=== PATIENT | male | born 1975 | race Caucasian/White ===

== ENCOUNTER 2018-05-04 11:41 | Inpatient (IN) ==
[2018-05-04] MEDS ORDERED: Sodium Chloride 0.9% 2 ML Flush PRN IV.FLUSH (12:27)
[2018-05-04] MEDS ORDERED: ceFAZolin 2 GM IV; once IV.SIG ONE (12:30)
[2018-05-04] MEDS ORDERED: Chlorhexidine Gluconate 2% 1 Pack (2 Cloths) TOPICAL ONE (12:30)
[2018-05-04] MEDS ORDERED: Metoprolol Tartrate 25 MG Tablet PO ONE (12:30)
[2018-05-04] MEDS ORDERED: Sodium Chlor 0.9% Inj 500 ML IV.CONT ONE (12:30)
[2018-05-04] MEDS ORDERED: Sugammadex Inj 200 MG/2 ML Vial IV.PUSH ONE (13:20)
[2018-05-04] MEDS ORDERED: Famotidine PF Inj 20 MG/2 ML Vial ONE (13:21)
[2018-05-04 13:22] LABS: Prothrombin Time 10.5 sec (9.8-11.6)
[2018-05-04] MEDS ORDERED: Lidocaine PF 1% Inj 5 ML Syringe OTHER ONE (13:44)
[2018-05-04] MEDS ORDERED: Normosol-R pH 7.4 Inj 4,000 ML IV.CONT ONE (13:44)
[2018-05-04] MEDS ORDERED: Phenylephrine/NS 1000 MCG/10ML Syringe IV.PUSH ONE (13:44)
[2018-05-04] MEDS ORDERED: Sodium Chlor 0.9% Inj 1,000 ML IV.SIG SCH (18:00)
[2018-05-04] MEDS ORDERED: *Meperidine Inj 25 MG/ML Vial PERIprocedural Use ONLY ONE (18:35)
[2018-05-04] MEDS ORDERED: fentaNYL Citrate Inj 100 MCG/2 ML Ampul ONE (18:40)
[2018-05-04 19:17] LABS: Baso % (Auto) 0.1 % (0.0-2.0); Eos % (Auto) 0.1 % (0.0-4.0); Hematocrit 32.9 % (39.0-51.0); Hemoglobin 11.8 gm/dL (13.0-17.0); Lymph # (Auto) 0.6 th/mm3 (1.0-4.8); Lymph % (Auto) 3.6 % (9.0-44.0); Mean Corpuscular Hemoglobin 32.8 pg (27.0-34.0); Mean Corpuscular Volume 91.2 fL (80.0-100.0); Mean Platelet Volume 8.9 fL (7.0-11.0); Mono # (Auto) 0.3 th/mm3 (0.0-0.9); Neut # (Auto) 14.4 th/mm3 (1.8-7.7); Neut % (Auto) 94.2 % (16.0-70.0); Platelet Count 141 th/mm3 (150-450); Red Blood Count 3.61 mil/mm3 (4.50-5.90); Red Cell Distribution Width 12.9 % (11.6-17.2); White Blood Count 15.3 th/mm3 (4.0-11.0)
[2018-05-04 19:41] LABS: Calcium 6.5 mg/dL (8.5-10.1); Carbon Dioxide 24.4 meq/L (21.0-32.0)
[2018-05-04 19:52] LABS: Potassium 4.1 meq/L (3.5-5.1)
[2018-05-04] MEDS: Pantoprazole Inj 40 MG Vial IV.PUSH SCH ×2 (19:55→22:54)
--- NOTE | 2018-05-04 20:36 | MP ---
cc: Isauro Dawson MD DATE OF OPERATION: 05/04/2018 PREOPERATIVE DIAGNOSIS: A 5 cm right solid renal mass. POSTOPERATIVE DIAGNOSIS: A 5 cm right solid renal mass. PROCEDURE PERFORMED: Robotic-assisted laparoscopic right radical nephrectomy. SURGEON: Isauro Dawson MD ANESTHESIA: General. COMPLICATIONS: None. PREOPERATIVE ANTIBIOTICS: Ancef 2 grams IV. DRAINS: Handley catheter. ESTIMATED BLOOD LOSS: 700 mL. FLUIDS: 5 liters of crystalloids. SPECIMENS: Right kidney for permanent. DISPOSITION: Stable to recovery. INDICATIONS: The patient is a 42-year-old male who was found to have an incidental large right renal mass. Treatment options were discussed and he elected to proceed with a right robotic partial nephrectomy, possible radical nephrectomy. After the risks, benefits and alternatives were explained to the patient, including the risk of renal failure and dialysis, among others, he elected to proceed. Informed consent was obtained. DETAILS OF PROCEDURE: The patient was properly identified and brought back to the operating room. He was laid supine on the operating table. A proper timeout was performed. Under the direction of anesthesiology, the patient was intubated and induced under general anesthetic. Preoperative antibiotics in the form of Ancef 2 grams IV were given within 1 hour of the start of the procedure. The patient was then placed in the left lateral decubitus position with the right side up after Handley catheter was placed and all pressure points were padded. He was then prepped and draped in the normal sterile surgical fashion. A stab incision was made superior to the umbilicus and I entered the abdominal cavity with a Veress needle. I then gained pneumoperitoneum at this time and placed a 12 mm camera port under direct visualization into the abdominal cavity. The abdominal cavity was carefully inspected with no evidence of any abdominal injuries including bleeding. Of note, the patient was found to have a small umbilical hernia containing fat. At this time, the 4 remaining ports were then placed under direct visualization including two 8 mm robotic seed analysis laboratory assistant ports triangulated off the camera port, a 5 mm port in the midline just below the xiphoid process for liver retraction and then a 12 mm seed analysis laboratory assistant port inferior to the umbilicus. Again, all ports were placed under direct visualization. The robot was then brought into position. I began by reflecting the white line of Toldt and reflecting the colon medially. This exposed the retroperitoneum. Next, I was able to kocherize the duodenum, which then gained access to the inferior vena cava. I then developed a plane between the inferior vena cava and the right kidney, where I found the psoas muscle. I then retracted the kidney anteriorly and went up the inferior vena cava towards the renal hilum. As I watched up to the renal hilum, I came across a large renal vein and there was a small branch anterior to this renal vein. I carefully dissected it out circumferentially and attempted to ligate it with the vessel sealer. However, the vessel sealer misfired and the apparent branch tore off of the IVC and there was some significant bleeding coming from the IVC. This was controlled with an interrupted 4-0 Prolene stitch. Once the bleeding was controlled, I began to carefully dissect around the renal hilum. At this point, I adjusted my retraction with the left arm to retract the kidney more anterior to the abdominal wall and encountered a vessel on the back side of the kidney that again resulted in significant bleeding. I was able to carefully dissect this vessel on the back side of the kidney out and and gain control with a new vessel sealer. After ligating this vessel, bleeding was well controlled. At this point, I then turned my attention back to the renal hilum. At this time, I found 2 renal arteries and a large renal vein. Both renal arteries were posterior to the renal vein. These were dissected out circumferentially. At this point, I then carefully decided to go locate the mass on the right kidney. I removed some of the perinephric fat on the kidney and came across this large mass that appeared to be quite stuck on the liver itself. The mass appeared to be more extensive than previously seen on the CAT scan. I did not feel I could get a negative margin, especially with it being stuck to the liver. Therefore, at this point, I decided that his best option would be to remove his entire kidney. At this point, I turned my attention to taking the renal hilum. Due to positioning of the upper pole artery, I was not able to take each artery separately. Therefore, I took the lower pole artery and vein together. There was some backbleeding, but this was controlled quite quickly as the second renal artery was then ligated with the vascular stapler. At this point, the superior and lateral attachments were then carefully dissected out with a combination of blunt dissection and electrocautery with the vessel sealer. The lower pole was then divided, including the ureter, with the robotic vessel sealer back. The large kidney was then placed in an EndoCatch bag for later removal. The renal hilum and prior injury to the vena cava were carefully inspected and appeared to be dry. The pneumoperitoneum was then dropped down to 7 mm of pressure. There was no bleeding that was seen. It was then carefully irrigated out. Evicel was used for hemostatic purposes around this area, which included the renal fossa, the adrenal bed and the hilum. At this point, the kidney was then extracted through the right lower quadrant incision and it was closed with a running PDS. A second look was then performed. The undersigned incision appeared to be free of bowel. The renal hilum and fossa were carefully inspected. There was no evidence of any bleeding at this time and appeared to be nice and dry. At this point, all ports were then removed under direct visualization. The incisions were closed with Monocryl and reinforced with Dermabond. Sponge, needle and instrument counts were correct at the end of the case. This concluded the procedure. The patient was extubated and sent to recovery in stable condition. He will be transferred to the floor for routine postoperative care. MD ADILIA Pringle/ishmael , 06:06 PM , 06:17 PM
[2018-05-04 20:37] LABS: Total Protein 5.3 g/dL (6.4-8.2)
[2018-05-04] MEDS ORDERED: Calcium Gluconate Inj 2 GM in Dextrose 5% in Water Inj 100 ML IV.SIG ONE ×2 (21:30)
[2018-05-04] MEDS ORDERED: Albumin Human 5% Inj 500 ML IV.SIG ONE (21:30)
[2018-05-04] MEDS: Morphine Inj 4 MG/ML Vial IV.PUSH PRN (21:43)
[2018-05-04] MEDS: Docusate Sodium 100 MG Capsule PO SCH (21:45)
[2018-05-04] MEDS: Sodium Chloride 0.9% 2 ML Flush BID IV.FLUSH SCH (21:45)
[2018-05-05] MEDS: Morphine Inj 4 MG/ML Vial IV.PUSH PRN ×3 (03:54→17:09)
[2018-05-05 07:38] LABS: Hematocrit 35.1 % (39.0-51.0); Hemoglobin 12.2 gm/dL (13.0-17.0); Mean Corpuscular HGB Conc 34.8 % (32.0-36.0); Mean Corpuscular Hemoglobin 32.4 pg (27.0-34.0); Mean Corpuscular Volume 92.9 fL (80.0-100.0); Mean Platelet Volume 8.2 fL (7.0-11.0); Platelet Count 152 th/mm3 (150-450); Red Blood Count 3.77 mil/mm3 (4.50-5.90); Red Cell Distribution Width 13.3 % (11.6-17.2); White Blood Count 15.2 th/mm3 (4.0-11.0)
[2018-05-05 08:01] LABS: Calcium 7.6 mg/dL (8.5-10.1); Carbon Dioxide 23.2 meq/L (21.0-32.0); Potassium 4.4 meq/L (3.5-5.1)
[2018-05-05] MEDS: Sodium Chloride 0.9% 2 ML Flush BID IV.FLUSH SCH ×2 (08:22→20:43)
[2018-05-05] MEDS: Docusate Sodium 100 MG Capsule PO SCH ×2 (08:22→20:43)
--- NOTE | 2018-05-05 11:20 | P.PNURO ---
Subjective Patient symptoms today: Pt is s/p right radical nephrectomy yesterday. Seen at bedside this afternoon. He had N/V several times this AM, Diet was adjusted to NPO for now and meds changed. Currently no f/c/n/v, Labs are stable as expected post/op. Pain is well controlled. Handley removed, he was able to void small amount of urine. No hematuria Objective Vital Signs: Vital Signs 05/04/18 12:22 05/04/18 18:30 05/04/18 18:45 Temperature 99 F 98.6 F 98.4 F Pulse Rate 74 120 H 112 H Respiratory Rate 16 14 14 Blood Pressure 114/76 119/56 L 100/58 L Pulse Oximetry 95 94 L 91 L 05/04/18 19:00 05/04/18 19:35 05/04/18 20:00 Temperature 97.8 F Pulse Rate 112 H 110 H 112 H Respiratory Rate 18 16 17 Blood Pressure 98/54 L 109/54 L 92/54 L Pulse Oximetry 94 L 94 L 92 L 05/04/18 23:50 05/05/18 04:34 05/05/18 08:00 Temperature 97.5 F L 97.2 F L 97.1 F L Pulse Rate 91 H 100 H 72 Respiratory Rate 16 16 17 Blood Pressure 105/57 L 107/62 100/55 L Pulse Oximetry 93 L 94 L 97 Intake & Output 05/04/18 05/05/18 05/05/18 18:59 06:59 18:59 Intake Total 5050 / 5050 1200 / 1200 100 / 100 Output Total 1100 / 1100 2450 / 2450 750 / 750 Balance 3950 / 3950 -1250 / -1250 -650 / -650 Weight 93.1 kg 93 kg Intake: IV 50 / 50 720 / 720 100 / 100 Alburx 5% Inj 500 ML @ 250 mls/ 500 / 500 hr IV.SIG ONCE ONE Rx#:[id number] Calcium Gluconate Inj 2 GM In 120 / 120 D5W Inj 100 ML @ 120 mls/hr IV. SIG ONCE ONE Rx#:[id number] Ancef 2 GM Premix Inj 2 gm In 50 / 50 50 ml @ 100 mls/hr IV.SIG ONCE ONE Rx#:[id number] Ancef Inj 1,000 MG In NS Inj 100 / 100 100 / 100 100 ML @ 200 mls/hr IV.SIG Q8H KASEY Rx#:[id number] Oral 480 / 480 Anesthesia Amount 5000 / 5000 Output: Emesis 150 / 150 Estimated Blood Loss 700 / 700 Urine Amount (Catheter) 400 / 400 2300 / 2300 750 / 750 Indwelling Urethral Catheter 400 / 400 2300 / 2300 750 / 750 Other: Date of Last Bowel Movement 05/04/18 Weight On Admission 93.1 kg Result Diagrams: 05/05/18 07:15 05/05/18 07:15 Medications and IVs: Active Medications Generic Name Dose Route Start Last Admin Trade Name Freq PRN Reason Stop Dose Admin Dicyclomine HCl 20 mg 05/04/18 21:00 05/05/18 08:21 Bentyl PO 20 mg BID KASEY Administration Docusate Sodium 100 mg 05/04/18 21:00 05/05/18 08:22 Colace PO 100 mg BID KASEY Administration Lactated Ringer's 1,000 mls @ 30 mls/hr 05/04/18 12:30 05/04/18 12:32 Lr 1000 Ml Inj IV.CONT 05/05/18 12:29 30 mls/hr .Q24H ONE Administration Cefazolin Sodium 1,000 mg/ 100 mls @ 200 mls/hr 05/04/18 22:00 05/05/18 07:18 Sodium Chloride IV.SIG 05/05/18 14:29 Infused Q8H KASEY Infusion Sodium Chloride 1,000 mls @ 135 mls/hr 05/04/18 18:00 Ns Inj IV.SIG .Q10H KASEY Acetaminophen 1,000 mg in 100 mls @ 400 mls/hr 05/05/18 11:00 Ofirmev Inj IV.SIG Q6H KASEY Metoclopramide HCl 5 mg 05/05/18 10:29 Reglan Inj IV.SIG Q12H PRN NAUSEA OR VOMITING Miscellaneous Information 1 each 05/04/18 19:02 Misc Nursing Information OTHER 05/05/18 19:02 UNSCH PRN SEE LABEL COMMENTS Miscellaneous Information 1 each 05/04/18 19:09 Misc Nursing Information OTHER 05/05/18 19:09 UNSCH PRN SEE LABEL COMMENTS Morphine Sulfate 4 mg 05/04/18 17:56 05/05/18 08:22 Morphine Inj IV.PUSH 4 mg Q4H PRN Administration BREAKTHROUGH PAIN Ondansetron HCl 4 mg 05/04/18 17:55 05/05/18 08:22 Zofran Inj IV.PUSH 4 mg Q6H PRN Administration NAUSEA OR VOMITING Pantoprazole Sodium 40 mg 05/04/18 18:00 05/04/18 22:54 Protonix Inj IV.PUSH 40 mg Q24H KASEY Administration Sodium Chloride 2 ml 05/04/18 21:00 05/05/18 08:22 Ns Flush IV.FLUSH 2 ml BID KASEY Administration Sodium Chloride 2 ml 05/04/18 12:27 Ns Flush IV.FLUSH PRN PRN FLUSH AFTER USING IV ACCESS Tramadol HCl 100 mg 05/05/18 10:21 Ultram PO Q6H PRN PAIN SCALE 6 TO 10 Objective Remarks: NAD RRR Clear lungs Abd soft NT. Incisions c/d/i Assessment and Plan - Plan POD# 1 s/p Rt radical nephrectomy yesterday Continue same management Labs at AM Pain meds PRN Keep NPO, Clear liquid diet possibly at AM OOB to chair and to ambulate IS use when in bed DVT prophylaxis Urology continues to follow Discussed Condition With: Dr Dawson and RN
[2018-05-05] MEDS: Pantoprazole Inj 40 MG Vial IV.PUSH SCH (17:10)
[2018-05-06 09:46] LABS: Hematocrit 33.8 % (39.0-51.0); Hemoglobin 11.7 gm/dL (13.0-17.0); Mean Corpuscular HGB Conc 34.6 % (32.0-36.0); Mean Corpuscular Hemoglobin 31.9 pg (27.0-34.0); Mean Corpuscular Volume 92.3 fL (80.0-100.0); Mean Platelet Volume 8.2 fL (7.0-11.0); Platelet Count 158 th/mm3 (150-450); Red Blood Count 3.66 mil/mm3 (4.50-5.90); Red Cell Distribution Width 13.3 % (11.6-17.2); White Blood Count 11.8 th/mm3 (4.0-11.0)
[2018-05-06 10:13] LABS: Carbon Dioxide 27.3 meq/L (21.0-32.0); Potassium 3.8 meq/L (3.5-5.1)
[2018-05-06] MEDS: Sodium Chloride 0.9% 2 ML Flush BID IV.FLUSH SCH ×2 (10:39→20:32)
[2018-05-06] MEDS: Docusate Sodium 100 MG Capsule PO SCH ×2 (10:39→20:30)
--- NOTE | 2018-05-06 15:33 | P.PNURO ---
Subjective Patient symptoms today: Pt was seen for f/u. no new c/o. feels better. pain is controlled well prn. no N/V, no fever. Tolerates current diet well. Cr is 1.7 today can be effect of pain meds in addition to post op normal changes in Cr. Ambulates. Voids normally but frequently, no hematuria. passed a small amount of flatus He had low pO2 at 87 yesterday and using O2. Today its better at 90s Objective Vital Signs: Vital Signs 05/05/18 16:00 05/05/18 19:55 05/06/18 00:04 Temperature 98.2 F 98.3 F 97.8 F Pulse Rate 61 69 81 Respiratory Rate 17 17 20 Blood Pressure 119/56 L 103/55 L 98/57 L Pulse Oximetry 90 L 94 L 92 L 05/06/18 08:00 05/06/18 11:48 05/06/18 12:00 Temperature 98.4 F 97.9 F Pulse Rate 69 77 Respiratory Rate 18 16 Blood Pressure 117/59 L 124/81 Pulse Oximetry 94 L 95 95 Intake & Output 05/05/18 05/06/18 05/06/18 18:59 06:59 18:59 Intake Total 400 / 400 1100 / 1100 100 / 100 Output Total 1100 / 1100 700 / 700 Balance -700 / -700 400 / 400 100 / 100 Weight 93 kg Intake: IV 400 / 400 1100 / 1100 100 / 100 LR 1000 mL Inj 1,000 ML @ 30 1000 / 1000 mls/hr IV.CONT .Q24H ONE Rx#: [id number] Ofirmev Inj 1,000 mg In 100 ml 200 / 200 100 / 100 100 / 100 @ 400 mls/hr IV.SIG Q6H KASEY Rx# :[id number] Ancef Inj 1,000 MG In NS Inj 200 / 200 100 ML @ 200 mls/hr IV.SIG Q8H KASEY Rx#:[id number] Output: Urine 350 / 350 700 / 700 Urine Amount (Catheter) 750 / 750 Indwelling Urethral Catheter 750 / 750 Other: # Voids 4 Date of Last Bowel Movement 05/04/18 05/04/18 Result Diagrams: 05/06/18 09:15 05/06/18 09:15 Medications and IVs: Active Medications Generic Name Dose Route Start Last Admin Trade Name Freq PRN Reason Stop Dose Admin Dicyclomine HCl 20 mg 05/04/18 21:00 05/06/18 10:39 Bentyl PO 20 mg BID KASEY Administration Docusate Sodium 100 mg 05/04/18 21:00 05/06/18 10:39 Colace PO 100 mg BID KASEY Administration Sodium Chloride 1,000 mls @ 135 mls/hr 05/04/18 18:00 Ns Inj IV.SIG .Q10H KASEY Acetaminophen 1,000 mg in 100 mls @ 400 mls/hr 05/05/18 12:00 05/06/18 13:47 Ofirmev Inj IV.SIG 400 mls/hr Q6H KASEY Infusion Metoclopramide HCl 5 mg 05/05/18 10:29 05/06/18 08:56 Reglan Inj IV.SIG 5 mg Q12H PRN Administration NAUSEA OR VOMITING Morphine Sulfate 4 mg 05/04/18 17:56 05/05/18 17:09 Morphine Inj IV.PUSH 4 mg Q4H PRN Administration BREAKTHROUGH PAIN Ondansetron HCl 4 mg 05/04/18 17:55 05/05/18 17:11 Zofran Inj IV.PUSH 4 mg Q6H PRN Administration NAUSEA OR VOMITING Pantoprazole Sodium 40 mg 05/04/18 18:00 05/05/18 17:10 Protonix Inj IV.PUSH 40 mg Q24H KASEY Administration Sodium Chloride 2 ml 05/04/18 21:00 05/06/18 10:39 Ns Flush IV.FLUSH Not Given BID KASEY Sodium Chloride 2 ml 05/04/18 12:27 Ns Flush IV.FLUSH PRN PRN FLUSH AFTER USING IV ACCESS Tramadol HCl 100 mg 05/05/18 10:21 05/06/18 13:44 Ultram PO 100 mg Q6H PRN Administration PAIN SCALE 6 TO 10 Objective Remarks: NAD RRR Clear lungs Abd soft NT. Incisions c/d/i Assessment and Plan - Plan POD# 1 s/p Rt radical nephrectomy yesterday Continue same management Labs at AM Pain meds PRN Advance diet tomorrow AM Continue to ambulate IS use when in bed DVT prophylaxis Oxygen prn, if will continue to have low O2, may need CXR Urology continues to follow Bladder scan to make sure he empties bladder well after voiding. possibly d/c tomorrow afternoon or on friday Discussed Condition With: Dr Eunice CHIU attending
[2018-05-06] MEDS: Pantoprazole Inj 40 MG Vial IV.PUSH SCH (18:04)
[2018-05-07] MEDS: Sodium Chloride 0.9% 2 ML Flush BID IV.FLUSH SCH (08:15)
[2018-05-07] MEDS: Docusate Sodium 100 MG Capsule PO SCH (08:15)
[2018-05-07 08:43] VITALS: RESP 18
[2018-05-07 10:04] LABS: Baso % (Auto) 0.3 % (0.0-2.0); Eos # (Auto) 0.1 th/mm3 (0.0-0.4); Eos % (Auto) 1.1 % (0.0-4.0); Hematocrit 33.6 % (39.0-51.0); Hemoglobin 11.7 gm/dL (13.0-17.0); Lymph # (Auto) 1.1 th/mm3 (1.0-4.8); Lymph % (Auto) 13.2 % (9.0-44.0); Mean Corpuscular HGB Conc 34.7 % (32.0-36.0); Mean Corpuscular Hemoglobin 32.4 pg (27.0-34.0); Mean Corpuscular Volume 93.3 fL (80.0-100.0); Mean Platelet Volume 8.2 fL (7.0-11.0); Mono # (Auto) 0.9 th/mm3 (0.0-0.9); Mono % (Auto) 10.3 % (0.0-8.0); Neut # (Auto) 6.4 th/mm3 (1.8-7.7); Neut % (Auto) 75.1 % (16.0-70.0); Platelet Count 168 th/mm3 (150-450); White Blood Count 8.5 th/mm3 (4.0-11.0)
[2018-05-07 10:25] LABS: Calcium 8.2 mg/dL (8.5-10.1); Carbon Dioxide 25.7 meq/L (21.0-32.0); Potassium 3.5 meq/L (3.5-5.1)
[2018-05-07 11:49] VITALS: BP 127/71; PULSE 69; TEMP 97.5; O2SAT 97
--- NOTE | 2018-05-07 13:48 | P.PNURO ---
Subjective Patient symptoms today: Pt was seen at bedside this afternoon. Doing well. No f/c/n/v. no hematuria, no voiding c/o Passing flatus, no BM yet. Pain is well controlled with IV Tyl only. Ambulates well. No breathing issues. He would like to go home Objective Vital Signs: Vital Signs 05/06/18 16:00 05/06/18 20:00 05/07/18 00:00 Temperature 98.1 F 98.0 F 98.5 F Pulse Rate 73 79 67 Respiratory Rate 17 20 20 Blood Pressure 124/72 122/64 122/66 Pulse Oximetry 96 95 96 05/07/18 08:00 05/07/18 11:48 Temperature 97.7 F 97.5 F L Pulse Rate 68 69 Respiratory Rate 18 18 Blood Pressure 135/66 127/71 Pulse Oximetry 94 L 97 Intake & Output 05/06/18 05/07/18 05/07/18 18:59 06:59 18:59 Intake Total 824 / 824 520 / 520 Output Total 800 / 800 Balance 824 / 824 -280 / -280 Intake: IV 200 / 200 200 / 200 Ofirmev Inj 1,000 mg In 100 ml 200 / 200 200 / 200 @ 400 mls/hr IV.SIG Q6H KASEY Rx# :[id number] Oral 624 / 624 320 / 320 Output: Urine 800 / 800 Other: Post Void Residual 186 # Voids 10 Result Diagrams: 05/07/18 08:35 05/07/18 08:35 Medications and IVs: Active Medications Generic Name Dose Route Start Last Admin Trade Name Freq PRN Reason Stop Dose Admin Dicyclomine HCl 20 mg 05/04/18 21:00 05/07/18 08:15 Bentyl PO 20 mg BID KASEY Administration Docusate Sodium 100 mg 05/04/18 21:00 05/07/18 08:15 Colace PO 100 mg BID KASEY Administration Sodium Chloride 1,000 mls @ 135 mls/hr 05/04/18 18:00 Ns Inj IV.SIG .Q10H KASEY Acetaminophen 1,000 mg in 100 mls @ 400 mls/hr 05/05/18 12:00 05/07/18 13:27 Ofirmev Inj IV.SIG 400 mls/hr Q6H KASEY Administration Metoclopramide HCl 5 mg 05/05/18 10:29 05/06/18 08:56 Reglan Inj IV.SIG 5 mg Q12H PRN Administration NAUSEA OR VOMITING Morphine Sulfate 4 mg 05/04/18 17:56 05/05/18 17:09 Morphine Inj IV.PUSH 4 mg Q4H PRN Administration BREAKTHROUGH PAIN Ondansetron HCl 4 mg 05/04/18 17:55 05/05/18 17:11 Zofran Inj IV.PUSH 4 mg Q6H PRN Administration NAUSEA OR VOMITING Pantoprazole Sodium 40 mg 05/04/18 18:00 05/06/18 18:04 Protonix Inj IV.PUSH 40 mg Q24H KASEY Administration Sodium Chloride 2 ml 05/04/18 21:00 05/07/18 08:15 Ns Flush IV.FLUSH Not Given BID KASEY Sodium Chloride 2 ml 05/04/18 12:27 Ns Flush IV.FLUSH PRN PRN FLUSH AFTER USING IV ACCESS Tramadol HCl 100 mg 05/05/18 10:21 05/06/18 20:29 Ultram PO 100 mg Q6H PRN Administration PAIN SCALE 6 TO 10 Objective Remarks: NAD RRR Clear lungs Abd soft NT. Incisions c/d/i Assessment and Plan - Plan POD# 3 s/p Rt radical nephrectomy 05/04/18 - Recovering well - Tolerates reg diet. Ambulates Pain is controlled VS and LAbs are stable He meets criteria for d/c Discharge planning initiated. Discussed Condition With: Dr Eunice CHIU attending
== END 2018-05-07 15:08 | disposition home or self-care (01) ==
LOC: HSDI 11:41 → N07 19:42
PROVIDERS: ADMIT Urology; ATTEND Urology